=== PATIENT | male | born 1965 | race Caucasian/White ===

== ENCOUNTER 2016-11-28 16:07 | Inpatient (IN) | payer OTHER ==
[2016-11-28 19:23] LABS: HCT-HEMATOCRIT 47.4 % (36.0-53.5); HGB-HEMOGLOBIN 16.2 gm/dl (13.5-17.0); IMMATURE GRANULOCYTES ABSOLUTE 0.08 tho/cmm (0-0.03); IMMATURE GRANULOCYTES PERCENT 0.4 % (0-0.3); LYMPH % 7.8 % (20-45); LYMPH ABSOLUTE COUNT 1.7 tho/cmm (0.8-4.5); MCH (MEAN CORPUSCULAR HGB) 27.9 pg (28.0-32.0); MCHC MEAN CORPUSCULAR HGB CONC 34.2 % (32.0-36.0); MCV (MEAN CELL VOLUME) 81.6 fl (82.0-96.0); MEAN PLATELET VOLUME 11.4 cmc (9.4-12.4); MONO % 5.1 % (0-12); MONOCYTE ABSOLUTE COUNT 1.1 tho/cmm (0.0-1.2); NEUTROPHIL ABSOLUTE COUNT 18.6 tho/cmm (1.6-8.0); NEUTROPHIL-AUTOMATED 18.6 tho/cmm (1.6-8.0); NEUTROPHILS % 86.7 % (40-80); PLATELET COUNT 197 tho/cmm (150-450); RED BLOOD COUNT 5.81 mil/cmm (4.40-5.70); RED CELL DISTRIBUTION WIDTH 14.4 % (12.4-16.4); WHITE BLOOD COUNT 21.4 tho/cmm (4.0-10.0)
[2016-11-28 19:39] LABS: ALBUMIN 3.4 g/dl (3.5-5.0); ALKALINE PHOSPHATASE 100 U/L (33-138); ALT/SGPT 33 U/L (12-78); ANION GAP 14 mmol/L (0-20); AST/SGOT 24 U/L (10-40); BILIRUBIN,TOTAL 0.6 mg/dl (0.0-1.5); BLOOD UREA NITROGEN 17 mg/dl (6-24); CALCIUM 8.8 mg/dl (8.5-10.5); CARBON DIOXIDE-VENOUS 28 mmol/L (22-32); CHLORIDE 102 mmol/l (96-110); CREATININE 1.26 mg/dl (0.60-1.30); GLUCOSE 124 mg/dL (70-110); MAGNESIUM 1.6 mg/dl (1.8-2.6); POTASSIUM 4.8 mmol/L (3.7-5.1); SODIUM 139 mmol/L (135-145); eGFR VALUE FOR BLACK 77 mL/Min
[2016-11-28] MEDS ORDERED: PROTONIX40 M2 PO (19:43)
[2016-12-02] MEDS ORDERED: BENADRYL25 M3 PO (12:03)
[2016-12-02] MEDS ORDERED: NORCO 5-325 TA1 EACH PO (12:04)
[2016-12-02] MEDS ORDERED: HYDROXYZINE HCL25 M1 PO (12:05)
== END 2016-12-02 13:00 | DRG 935 ==
LOC: BURN 16:07
PROVIDERS: Surgery; ADMIT Surgery
PROC: 0HR Skin and Breast, Replacement (ICD-10-PCS; principal; 2016-11-28)
PROC: 0HR Skin and Breast, Replacement (ICD-10-PCS; 2016-11-28)
PROC: 0HR7XK4 Replacement of Abdomen Skin with Nonautologous Tissue Substitute, Partial Thickness, External Approach (ICD-10-PCS; 2016-11-28)
PROC: 0HR Skin and Breast, Replacement (ICD-10-PCS; 2016-11-28)
PROC: 0HR Skin and Breast, Replacement (ICD-10-PCS; 2016-11-28)
DX: T21.21XA Burn of second degree of chest wall, initial encounter (principal); T21.22XA Burn of second degree of abdominal wall, initial encounter; T22.212A Burn of second degree of left forearm, initial encounter; T21.26XA Burn of second degree of male genital region, initial encounter; T24.212A Burn of second degree of left thigh, initial encounter; T24.211A Burn of second degree of right thigh, initial encounter; X13.1XXA Other contact with steam and other hot vapors, initial encounter; Y93.89 Activity, other specified; Y92.73 Farm field as the place of occurrence of the external cause; Z79.899 Other long term (current) drug therapy
CPT/HCPCS: C5273; C5274; C5275; C5276; C9113; J2250; J2270; Q4136